=== PATIENT | female | born 1995 | race African-American/Black ===

== ENCOUNTER 2016-10-19 16:12 | Emergency (ER) | payer OTHER ==
--- NOTE | 2016-10-19 18:03 | ED HEADACHE COMPLAINT ---
History of Present Illness General Chief Complaint: Headache Stated Complaint: PT HAS A BAD HEADACHE Source: patient Exam Limitations: no limitations Vital Signs & Intake/Output Vital Signs & Intake/Output Vital Signs Date Time Temp Pulse Resp B/P B/P Pulse O2 O2 Flow FiO2 Mean Ox Delivery Rate 10/19 2005 97.7 88 18 124/65 10/19 1621 97.5 82 18 119/77 99 Allergies Coded Allergies: shrimp (HIVES 10/19/16) Triage Note: PER PT HEADACHES SINCE 18 YO, COME AND GO, LAST FEW DAYS MORE FREQUENT NO NAUSEA NO DIZZYNESS, SOMETIMES HAS BLURRY VISION LMP 2 WEEKS AGO. PT WITHOUT NEURO DEFICITS, SPEECH CLEAR STEADY GAIT Triage Nurses Notes Reviewed? yes : No Patient currently breastfeeds: No HPI: This patient is a 20-year-old female who presented to the emergency department today accompanied by her sister for evaluation of headache. The patient reported that when she was 18 years old she started to get headache/migraine headaches. She reported that both her sister and her mother get these. She has tried taking ibuprofen the past which did not help. She reported that she gets these headaches almost every day. She reported that her current headache has lasted for approximately one week. The pain gets up to the 10 out of 10, and never less than a 5 out of 10. The pain is throbbing and nonradiating. It is primarily across her forehead. She reported that this week she noticed some slightly blurry vision. The patient denied any vomiting, nausea, abdominal pain , chest pain, difficulty breathing, neck pain, back pain, numbness or tingling in her extremities, syncope, dizziness, or lightheadedness. This patient has never been evaluated by a primary care physician or by a neurologist for her symptoms. (YVROSE HORN,ANTONINA) Reconcile Medications Butalb/Acetaminophen/Caffeine (Fioricet 50-300-40 MG Capsule) 50 MG-300 MG-40 MG CAPSULE 1 TAB PO BID PRN HEADACHE (CHANDU PRATT,KEVIN) Past History Travel History Traveled to [place] past 21 day No Medical History Any Pertinent Medical History? see below for history Neurological: NONE EENT: NONE Cardiovascular: NONE Respiratory: NONE Gastrointestinal: NONE Hepatic: NONE Renal: NONE Musculoskeletal: NONE Psychiatric: NONE Endocrine: NONE Surgical History Surgical History: non-contributory Psychosocial History What is your primary language Italian Tobacco Use: Never used Family History Hx Contributory? No (YVROSE HORN,ANTONINA) Review of Systems Review of Systems Constitutional: Reports: no symptoms. Eyes: Reports: see HPI. Ears, Nose, Throat, Mouth: Reports: no symptoms. Respiratory: Reports: no symptoms. Cardiovascular: Reports: no symptoms. Gastrointestinal/Abdominal: Reports: no symptoms. Genitourinary: Reports: no symptoms. Musculoskeletal: Reports: no symptoms. Skin: Reports: no symptoms. Neurological/Psychological: Reports: see HPI. Hematologic/Endocrine: Reports: no symptoms. All Other Systems: Reviewed and Negative (YVROSE HORN,ANTONINA) Physical Exam Physical Exam Cranial Nerves: normal hearing, normal speech, PERRL Comments: Well-developed well-nourished person in no acute distress HEENT: Normal EENT exam, head normocephalic/atraumatic, moist mucous membranes PERRLA bilaterally. EOMI bilaterally. No nystagmus Neck: Supple, no lymphadenopathy. No midline tenderness. No meningeal signs Back: Normal gait. Normal inspection Cardiovascular: Regular rate and rhythm with no murmurs, rubs, or gallops Respiratory: Chest nontender. No respiratory distress. Breath sounds clear to auscultation bilaterally Extremity: Normal and equal pulses Neuro: Alert oriented x3, motor sensory normal, cranial nerves II through XII grossly intact. Skin: No appreciable rash on exposed skin, skin is warm and dry. Psych: Mood and affect is normal, memory and judgment is normal. Core Measures Severe Sepsis Present: No Septic Shock Present: No (YVROSE HORN,ANTONINA) Progress Differential Diagnosis: carotid dissection, cav sinus thromb, cluster PURDY, encephalitis, IC mass/tumor, intracranial Hem., meningitis, migraine PURDY, musculoskeletal pain, sinusitis, SSS thrombosis, subarach. Hem., tension PURDY, temporal arteritis, TMJ syndrome, viral cephalgia Plan of Care: Orders Procedure Date/time Status URINE 10/19 1732 Complete Laboratory Tests 10/19/16 181: Urine Test NEGATIVE Diagnostic Imaging: Viewed by Me: CT Scan. Discussed w/RAD: CT Scan. Radiology Impression: PATIENT: RICCO ROLLE PRESENT AGE: 20 PATIENT ACCOUNT NO: [id number] : 96 LOCATION: [facility] ORDERING PHYSICIAN: ANTONINA FRANCES PA-C SERVICE DATE: 10/19/16-1819 EXAM TYPE: CAT - CT HEAD WO IV CONTRAST EXAMINATION: CT HEAD WITHOUT CONTRAST CLINICAL INFORMATION: Evaluate for intracranial hemorrhage COMPARISON: None TECHNIQUE: Contiguous axial imaging was performed from the skull base to vertex without intravenous administration of contrast. DLP: 600 mGy-cm FINDINGS: There is no evidence of acute intracranial hemorrhage or territorial infarction. No abnormal mass effect or midline shift is seen. Whipple to white matter differentiation is well preserved. No extra-axial fluid collections are identified. The ventricles are normal in size. There is no abnormal attenuation within the brain parenchyma. The osseous structures and soft tissues are normal. The mastoid air cells and visualized portions of the paranasal sinuses are well aerated. IMPRESSION: No acute intracranial pathology. No evidence for intracranial hemorrhage DICTATED BY: NEGAR FRANCO MD DATE/TIME DICTATED:10/19/161943 CHOCOLATE FINISHER OPERATOR:HOSEA DATE/TIME TRANSCRIBED:10/19/161943 CONFIDENTIAL, DO NOT COPY WITHOUT APPROPRIATE AUTHORIZATION. <Electronically signed in Other Vendor System> SIGNED BY: NEGAR FRANCO MD 10/19/161948 Comments: 10/19/2016 6:20:43 PM: The patient is requesting a CT scan of the head. I discussed this patient extensively the risks of radiation. She would still like to go ahead with the CT scan. Urine negative. (ANTONINA FRANCES PA-C) Departure Departure Disposition: HOME OR SELF CARE Condition: Stable Clinical Impression Primary Impression: Headache Qualifiers: Headache type: unspecified Headache chronicity pattern: unspecified pattern Intractability: not intractable Qualified Code: R51 - Headache Referrals: ARGENIS PIEDRA MD PATIENT HAS NO PRIMARY CARE DR (PCP/Family) Additional Instructions: Take medication for headache as prescribed. Rest and stay hydrated. Return for any worsening symptoms or concerns. Please follow up with a neurologist as information has been provided to this packet. Departure Forms: Customer Survey General Discharge Information Prescriptions: Current Visit Scripts Butalb/Acetaminophen/Caffeine (Fioricet 50-300-40 MG Capsule) 1 TAB PO BID PRN HEADACHE #10 TAB (ANTONINA FRANCES PA-C) PA/ASSISTANT COUNSEL Co-Sign Statement Statement: ED Attending supervision documentation- [] I saw and evaluated the patient. I have also reviewed all the pertinent lab results and diagnostic results. I agree with the findings and the plan of care as documented in the PA's/ASSISTANT COUNSEL's documentation. x I have reviewed the ED Record and agree with the PA's/ASSISTANT COUNSEL's documentation. [] Additions or exceptions (if any) to the PAs/ASSISTANT COUNSEL's note and plan are summarized below: [] (CHANDU PRATT,KEVIN)
--- NOTE | 2016-10-19 19:49 | CT SCAN REPORT ---
EXAMINATION: CT HEAD WITHOUT CONTRAST CLINICAL INFORMATION: Evaluate for intracranial hemorrhage COMPARISON: None TECHNIQUE: Contiguous axial imaging was performed from the skull base to vertex without intravenous administration of contrast. DLP: 600 mGy-cm FINDINGS: There is no evidence of acute intracranial hemorrhage or territorial infarction. No abnormal mass effect or midline shift is seen. Whipple to white matter differentiation is well preserved. No extra-axial fluid collections are identified. The ventricles are normal in size. There is no abnormal attenuation within the brain parenchyma. The osseous structures and soft tissues are normal. The mastoid air cells and visualized portions of the paranasal sinuses are well aerated. IMPRESSION: No acute intracranial pathology. No evidence for intracranial hemorrhage
[2016-10-19] MEDS ORDERED: FIORICET 50-301 EACH PO (19:57)
[2016-10-19 20:06] VITALS: BP 124/65
== END 2016-10-19 20:10 ==
LOC: ERH 16:12
DX: R51 Headache (principal)
CPT/HCPCS: 81025; 96374; J1885

== ENCOUNTER 2017-01-03 10:59 | Emergency (ER) | payer OTHER ==
[~2017-01-03] VITALS: Ht 160 cm; Wt 47.2 kg
[~2017-01-03 10:59] MED LIST: FIORICET 50-301 EACH PO
[2017-01-03 11:06] VITALS: BP 118/75
--- NOTE | 2017-01-03 11:10 | ED HEADACHE COMPLAINT ---
History of Present Illness General Chief Complaint: Headache Stated Complaint: PER PT "PURDY CAUSING DIZZINESS" Source: patient Exam Limitations: no limitations Vital Signs & Intake/Output Vital Signs & Intake/Output Vital Signs Date Time Temp Pulse Resp B/P B/P Pulse O2 O2 Flow FiO2 Mean Ox Delivery Rate 01/03 1106 98.4 84 18 118/75 98 Room Air Allergies Coded Allergies: shrimp (HIVES 10/19/16) Reconcile Medications Butalb/Acetaminophen/Caffeine (Fioricet 50-300-40 MG Capsule) 50 MG-300 MG-40 MG CAPSULE 1 TAB PO BID PRN HEADACHE Meloxicam (Mobic) 15 MG TABLET 1 TAB PO DAILY PRN PAIN/HEADACHE Sumatriptan Succinate (Imitrex) 50 MG TABLET 1 TAB PO AD PRN MIGRAINE TAKE FOR HEADACHES, IF NO BETTER IN 30 MINUTES REPEAT DO NOT EXCEED TWO TABLETS IN ONE DAY Triage Note: 21 YO FEMALE TO ER C/O HEFLAKITA FOR "AWHILE" STATES SHE HAS A HX OF MIGRANES AND HASNT SEEN A NEUOROLOGIST YET (CANNOT GET A AN APPT UNTIL MARCH) AND STATES DOESNT HAVE A PRIMARY CARE DR. MOFFETT N/V. +PHOTOPHOBIA. Triage Nurses Notes Reviewed? yes Onset: Gradual Duration: intermittent Timing: recent history Severity Numbers: 5 Head Injury Location: temporal : No Patient currently breastfeeds: No HPI: Patient is a 21-year-old female with a past medical history of migraines 5 years who presents emergency room for the past week she's been complaining of intermittent bilateral temporal squeezing pressure-like headaches with associated symptoms of photophobia and dizziness. Patient has not take any medications for symptoms. Patient is requesting a primary care doctor and a neurologist. Denies any acute onset of sharp stabbing severe or thunderclap headache. Symptoms have come and gone over the past 5 years. Patient was recently evaluated at [facility] emergency room 4 months ago where she states that she was given medications with no relief in which due to old records is noted the patient has tried in the past prednisone NSAIDs and Fioricet with no relief of symptoms. Denies any fever chills blurred vision neck pain neck stiffness nausea or vomiting patient is able to tolerate by mouth. (YARI RICHTER,IOANA) Past History Travel History Traveled to [place] past 21 day No Medical History Any Pertinent Medical History? see below for history Neurological: migraine EENT: NONE Cardiovascular: NONE Respiratory: NONE Gastrointestinal: NONE Hepatic: NONE Renal: NONE Musculoskeletal: NONE Psychiatric: NONE Endocrine: NONE Blood Disorders: NONE Cancer(s): NONE VENDOR MANAGEMENT SPECIALIST/Reproductive: NONE Surgical History Surgical History: non-contributory Psychosocial History What is your primary language Ukrainian Tobacco Use: Never used Family History Hx Contributory? No (IOANA HAMLIN) Review of Systems Review of Systems Constitutional: Reports: no symptoms. Eyes: Reports: see HPI, photophobia. Ears, Nose, Throat, Mouth: Reports: no symptoms. Respiratory: Reports: no symptoms. Cardiovascular: Reports: no symptoms. Gastrointestinal/Abdominal: Reports: no symptoms. Genitourinary: Reports: no symptoms. Musculoskeletal: Reports: no symptoms. Skin: Reports: no symptoms. Neurological/Psychological: Reports: see HPI, headache. Hematologic/Endocrine: Reports: no symptoms. Endocrine: Reports: no symptoms. Immunologic/Allergic: Reports: no symptoms. All Other Systems: Reviewed and Negative (IOANA HAMLIN) Physical Exam Physical Exam General Appearance: no apparent distress, alert Cranial Nerves: normal hearing, normal speech, PERRL Comments: Well-developed well-nourished person in no acute distress HEENT: Normal EENT exam, extraocular motion intact, no nystagmus. Pupils equally round and reactive to light and accommodation. Nose is atraumatic. External auditory canal and Tympanic membranes clear. Pharynx normal. No swelling or edema. Neck: Supple, no lymphadenopathy, normal range of motion without pain or tenderness Back: Nontender, no CVA tenderness. Cardiovascular: Regular rate and rhythms no murmurs rubs or gallops, normal JVP Respiratory: Chest nontender. No respiratory distress.breath sounds clear to auscultation bilaterally Abdomen: Soft, nontender nondistended, no appreciable organomegaly. Normal bowel sounds. No ascites Extremity: No edema, no calf tenderness to palpation, normal and equal pulses. Neuro: Alert oriented x3, motor sensory normal, cranial nerves II through XII grossly intact. Negative Romberg and negative cerebellar testing Skin: No appreciable rash on exposed skin, skin is warm and dry. Psych: Mood and affect is normal, memory and judgment is normal. Core Measures Severe Sepsis Present: No Septic Shock Present: No (IOANA HAMLIN) Progress Differential Diagnosis: carotid dissection, cav sinus thromb, cluster PURDY, encephalitis, IC mass/tumor, intracranial Hem., meningitis, migraine PURDY, musculoskeletal pain, sinusitis, SSS thrombosis, subarach. Hem., tension PURDY, temporal arteritis, TMJ syndrome, viral cephalgia, PSEUDOTUMOR CEREBRI Plan of Care: Patient on initial examination was in no apparent distress and laughing with siblings. Patient has unremarkable physical exam findings patient was neurologically intact. Patient was strongly advised and given a [facility] referral pamphlet for follow-up and establishment Upon discharge patient looks well no apparent distress and will comply with discharge instructions and had no questions. Even though the patient was prescribed sumatriptan and past she believes that she never took this medication as she has TWIN SISTER and patient's twin sister states that she took the medication with relief of her chronic migraines (IOANA HAMLIN) Departure Departure Disposition: HOME OR SELF CARE Condition: Stable Clinical Impression Primary Impression: Migraine Referrals: LINSEY BOND MD (PCP/Family) Additional Instructions: As discussed today please call [facility] to make an appointment for primary care doctor. Begin the prescription on meloxicam for headaches and begin the prescription for sumatriptan for breakthrough headache relief. If symptoms worsen return to emergency room. Prescription is waiting at [facility]. Departure Forms: Customer Survey General Discharge Information Prescriptions: Current Visit Scripts Meloxicam (Mobic) 1 TAB PO DAILY PRN PAIN/HEADACHE #15 TAB Sumatriptan Succinate (Imitrex) 1 TAB PO AD PRN MIGRAINE #12 TAB TAKE FOR HEADACHES, IF NO BETTER IN 30 MINUTES REPEAT DO NOT EXCEED TWO TABLETS IN ONE DAY (IOANA HAMLIN) PA/BUSINESS TRAVEL CONSULTANT Co-Sign Statement Statement: ED Attending supervision documentation- I saw and evaluated the patient. I have also reviewed all the pertinent lab results and diagnostic results. I agree with the findings and the plan of care as documented in the PA's/BUSINESS TRAVEL CONSULTANT's documentation. x I have reviewed the ED Record and agree with the PA's/BUSINESS TRAVEL CONSULTANT's documentation. [] Additions or exceptions (if any) to the PAs/BUSINESS TRAVEL CONSULTANT's note and plan are summarized below: [] (CHANDU PRATT,KEVIN)
[2017-01-03] MEDS ORDERED: IMITREX50 M1 PO (11:34)
[2017-01-03] MEDS ORDERED: MOBIC15 M1 PO (11:34)
== END 2017-01-03 11:47 ==
LOC: ERH 10:59
DX: G43.909 Migraine, unspecified, not intractable, without status migrainosus (principal)